=== PATIENT | male | born 1980 | race African-American/Black ===

== ENCOUNTER 2016-08-16 07:27 | Emergency (ER) | payer SELFPAY ==
[~2016-08-16] VITALS: Ht 172.7 cm; Wt 75.0 kg
[2016-08-16 07:30] VITALS: BP 125/80
[2016-08-16] MEDS ORDERED: ALBU2.5V13 IH (07:33)
== END 2016-08-16 15:11 | disposition left against medical advice (07) ==
LOC: ER 07:42
DX: Z53.21 Procedure and treatment not carried out due to patient leaving prior to being seen by health care provider (principal)